=== PATIENT | female | born 1940 | race Caucasian/White ===

== ENCOUNTER 2016-11-06 16:56 | Emergency (ER) | payer MEDICARE, OTHER ==
[~2016-11-06] VITALS: Wt 57.5 kg
[2016-11-06 17:41] LABS: ADD SCAN DIFF NO
[2016-11-06] MEDS ORDERED: SITA100T8 PO (17:41)
[2016-11-06] MEDS ORDERED: MELO-110 PO (17:41)
[2016-11-06] MEDS ORDERED: PRAV40TA76 PO (17:42)
[2016-11-06] MEDS ORDERED: OMEP20CA16 PO (17:42)
[2016-11-06] MEDS ORDERED: GLIM1TAB2 PO (17:42)
[2016-11-06] MEDS ORDERED: METO25TA7 PO (17:43)
[2016-11-06] MEDS ORDERED: BACL10TA PO (17:43)
[2016-11-06 17:54] LABS: INR 0.83; PARTIAL THROMBOPLASTIN TIME 25.6 Sec (25.0-35.0); PROTIME 11.4 Sec (12.2-14.2); PT RATIO 0.9
[2016-11-06 17:55] LABS: ALBUMIN 4.5 g/dl (3.3-4.9); CHLORIDE 98 mmol/L (97-110); POTASSIUM 4.8 mmol/L (3.5-5.1); SODIUM 137 mmol/L (135-144)
[2016-11-06 17:57] LABS: CREATININE 0.64 mg/dl (0.44-1.00)
[2016-11-06 17:58] LABS: ALANINE AMINOTRANSFERASE 27 IU/L (13-69); ALBUMIN/GLOBULIN RATIO 1.25; ALKALINE PHOSPHATASE 97 IU/L (42-121); ANION GAP 18 (8-16); ASPARTATE AMINO TRANSFERASE 22 IU/L (15-46); BLOOD UREA NITROGEN 18 mg/dl (7-20); CALCIUM 9.5 mg/dl (8.4-10.2); CARBON DIOXIDE 26 mmol/L (21-31); GLUCOSE 287 mg/dl (70-220); TOTAL PROTEIN 8.1 g/dl (6.1-8.1)
[2016-11-06 18:30] LABS: TROPONIN-I < 0.012 ng/ml (0.00-0.12)
[2016-11-06 18:54] LABS: ADD UMIC YES; URINE BILIRUBIN (Dip) NEGATIVE (NEGATIVE); URINE BLOOD (Dip) NEGATIVE (NEGATIVE); URINE COLOR LT. YELLOW (YELLOW); URINE GLUCOSE (Dip) >=1000 % (NEGATIVE); URINE KETONES (Dip) NEGATIVE (NEGATIVE); URINE LEUKOCYTE ESTERASE (Dip) TRACE (NEGATIVE); URINE NITRITE (Dip) NEGATIVE (NEGATIVE); URINE TOTAL PROTEIN (Dip) NEGATIVE (NEGATIVE); URINE UROBILINOGEN (Dip) 0.2 E.U./dL (0.1-1.0)
--- NOTE | 2016-11-06 19:03 | RADRPT ---
PROCEDURE: CT Head without contrast. CLINICAL INDICATION: Pain, low platelets TECHNIQUE: Continuous axial CT images were obtained from the base of skull to the vertex. No cont rast was administered. The calculated radiation dose measures 720 mGy centimeters. The CTDI measures 45 mGy COMPARISON: None available FINDINGS: There is mild diffuse cerebral volume loss. The ventricles are symmetric and normal in configuratio n. There is no mass effect or midline shift. There is no abnormal intra-axial or extra-axial fluid collection. There is no evidence of intracranial hemorrhage. There is calcification in the left b dionisio ganglia. There are scattered areas of decreased attenuation in the supratentorial white matter, consistent wi th mild small vessel ischemic changes. There is mild to moderate atherosclerotic vascular calcificat ion. The bony calvarium is intact. The orbital soft tissue contents are unremarkable. Paranasal sinuses appear clear. IMPRESSION: 1. Mild age related cerebral volume loss. Mild small vessel ischemic changes. 2. Mild to moderate atherosclerotic vascular calcification. 3. No mass effect or acute intracranial bleed. 4. 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 RPTAT: DD .Raad Parra MD, Date Time Electronically viewed and signed by .Raad Parra MD, on 11/06/2016 19:03 .T/
[2016-11-06 19:45] LABS: BASOPHILS % 0.3 % (0.0-2.0); EOSINOPHILS # 0.2 10^3/ul (0.0-0.5); EOSINOPHILS % 1.8 % (0.0-7.0); HEMATOCRIT 43.1 % (37.0-47.0); HEMOGLOBIN 14.6 g/dl (12.0-16.0); LYMPHOCYTES # 3.5 10^3/ul (0.8-2.9); LYMPHOCYTES % 38.4 % (15.0-51.0); MEAN CORPUSCULAR HEMOGLOBIN 31.5 pg (29.0-33.0); MEAN CORPUSCULAR HGB CONC 33.9 g/dl (32.0-37.0); MEAN CORPUSCULAR VOLUME 92.9 fl (82.0-101.0); MEAN PLATELET VOLUME 9.9 fl (7.4-10.4); MONOCYTE # 0.8 10^3/ul (0.3-0.9); MONOCYTES % 8.3 % (0.0-11.0); NEUTROPHIL # 4.6 10^3/ul (1.6-7.5); NEUTROPHILS % 50.4 % (39.0-77.0); PLATELET COUNT 228 10^3/UL (140-415); RED BLOOD COUNT 4.64 10^6/ul (4.20-5.40); RED CELL DISTRIBUTION WIDTH 12.3 % (11.5-14.5); WHITE BLOOD COUNT 9.1 10^3/ul (4.8-10.8)
[2016-11-06 19:46] LABS: SQUAMOUS EPITHELIAL CELL,UR FEW; URINE RBCS NONE SEEN /HPF (0)
--- NOTE | 2016-11-06 19:57 | ERD ---
ER Documentation Chief Complaint Date/Time DATE: 11/06/16 TIME: 19:57 Chief Complaint sent by pmd for crit low platelet count 24, potassium 5.8, see attachd HPI Patient is a 76-year-old female with hypertension and diabetes who presents for a low platelet count. The patient was sent by Dr. Camara for a platelet count of 24. She also had a potassium of 5.8. She was seen by the doctor yesterday for right-sided leg pain that she has had since Friday. The laboratory studies returned today and she was sent to the ER. She has no new medicines. She has no fevers. Upon review of old medical records this the patient's first visit to the ER. ROS All systems reviewed and are negative except as per history of present illness. Medications Home Meds Reported Medications Baclofen* (Baclofen*) 10 Mg Tablet, 10 MG PO DAILY for 14 Days, #14 TAB 11/06/16 Metoprolol Succinate* (Toprol XL*) 25 Mg Tab.sr.24h, 25 MG PO DAILY, #30 TAB 11/06/16 Glimepiride* (Glimepiride*) 1 Mg Tablet, 1 MG PO WITH BREAKFAST, TAB 11/06/16 Omeprazole* (Omeprazole*) 20 Mg Capsule.dr, 20 MG PO DAILY, #30 CAP 11/06/16 Pravastatin Sodium* (Pravastatin Sodium*) 40 Mg Tablet, 40 MG PO HS, TAB 11/06/16 Sitagliptin* (Januvia*) 100 Mg Tablet, 100 MG PO DAILY, #30 TAB 11/06/16 Meloxicam* (Mobic*) 15 Mg Tablet, 15 MG PO QAM for 14 Days, #14 TAB 11/06/16 PMhx/Soc Positive for hypertension, diabetes, and high cholesterol Medical and Surgical Hx: Unable to obtain Hx Alcohol Use: No Hx Substance Use: No Hx Tobacco Use: No Smoking Status: Never smoker FmHx Family History: No diabetes Physical Exam Vitals Vital Signs Date Time Temp Pulse Resp B/P Pulse Ox O2 Delivery O2 Flow Rate FiO2 11/06/16 20:03 98.3 88 20 157/88 100 Room Air 11/06/16 18:44 98.4 71 20 147/59 100 Room Air 11/06/16 17:53 72 19 136/56 98 Room Air 11/06/16 16:58 98.0 78 20 164/72 98 Physical Exam Const: No acute distress Head: Atraumatic Eyes: Normal Conjunctiva ENT: Normal External Ears, Nose and Mouth. Neck: Full range of motion..~ No meningismus. Resp: Clear to auscultation bilaterally Cardio: Regular rate and rhythm, no murmurs Abd: Soft, non tender, non distended. Normal bowel sounds Skin: No petechiae or rashes Back: No midline or flank tenderness Ext: No cyanosis, or edema Neur: Awake and alert Psych: Normal Mood and Affect Result Diagram: 11/06/16 1715 11/06/16 171 Results 24 hrs Laboratory Tests Test 11/06/16 17:15 11/06/16 18:40 White Blood Count 9.110^3/ul Red Blood Count 4.6410^6/ul Hemoglobin 14.6g/dl Hematocrit 43.1% Mean Corpuscular Volume 92.9fl Mean Corpuscular Hemoglobin 31.5pg Mean Corpuscular Hemoglobin Concent 33.9g/dl Red Cell Distribution Width 12.3% Platelet Count 48752^3/UL Mean Platelet Volume 9.9fl Neutrophils % 50.4% Lymphocytes % 38.4% Monocytes % 8.3% Eosinophils % 1.8% Basophils % 0.3% Nucleated Red Blood Cells % 0.0/100WBC Neutrophils # 4.610^3/ul Lymphocytes # 3.510^3/ul Monocytes # 0.810^3/ul Eosinophils # 0.210^3/ul Basophils # 0.010^3/ul Nucleated Red Blood Cells # 0.010^3/ul Prothrombin Time 11.4Sec Prothrombin Time Ratio 0.9 INR International Normalized Ratio 0.83 Activated Partial Thromboplast Time 25.6Sec Sodium Level 137mmol/L Potassium Level 4.8mmol/L Chloride Level 98mmol/L Carbon Dioxide Level 26mmol/L Anion Gap 18 Blood Urea Nitrogen 18mg/dl Creatinine 0.64mg/dl Glucose Level 287mg/dl Calcium Level 9.5mg/dl Total Bilirubin 0.0mg/dl Direct Bilirubin 0.00mg/dl Indirect Bilirubin 0.0mg/dl Aspartate Amino Transf (AST/SGOT) 22IU/L Alanine Aminotransferase (ALT/SGPT) 27IU/L Alkaline Phosphatase 97IU/L Troponin I < 0.012ng/ml Total Protein 8.1g/dl Albumin 4.5g/dl Globulin 3.60g/dl Albumin/Globulin Ratio 1.25 Lipase 137U/L Urine Color LT. YELLOW Urine Clarity CLEAR Urine pH 5.5 Urine Specific [place] <=1.005 Urine Ketones NEGATIVE Urine Nitrite NEGATIVE Urine Bilirubin NEGATIVE Urine Urobilinogen 0.2 E.U./dL Urine Leukocyte Esterase TRACE Urine Microscopic RBC NONE SEEN/HPF Urine Microscopic WBC 0-2/HPF Urine Squamous Epithelial Cells FEW Urine Hemoglobin NEGATIVE Urine Glucose >=1000% Urine Total Protein NEGATIVE Procedures/MDM EKG read by me: Rate/Rhythm: Regular rate and rhythm at a rate of 73 Intervals: Normal Impression: No evidence of ischemia or arrhythmia Laboratory studies show normal potassium and normal platelets. Patient is a 76-year-old female presents for low platelets. I repeated laboratory studies here in the emergency department and her platelet count is normal. Potassium is normal as well. EKG shows no signs of ischemia or hyperkalemia. I believe outpatient management is appropriate. The patient will be discharged and can follow-up with the primary doctor. The patient can return for any worsening symptoms. Departure Diagnosis: Primary Impression: Encounter for laboratory test Condition: Fair Patient Instructions: Hyperglycemia (High Blood Sugar) Referrals: Your doctor Additional Instructions: Llame al doctor MAANA y pratibha stephen SOLO PARA DENTRO DE 1-2 ADAMSON.Dgale a la secretaria que nosotros le instruimos hacer esta solo.Avise o llame si tolentino condicin se empeora antes de la solo. Regresa aqui si peor o no mejor. CHRISTOPH ALANIS MD Nov 06, 2016 19:57
[2016-11-06 20:03] VITALS: BP 157/88; PULSE 88; RESP 20; TEMP 98.3
== END 2016-11-06 20:06 | disposition home or self-care (01) ==
LOC: E/R 16:56
DX: Z00.00 Encounter for general adult medical examination without abnormal findings (principal); I10 Essential (primary) hypertension; E11.9 Type 2 diabetes mellitus without complications; R51 Headache; Z79.84 Long term (current) use of oral hypoglycemic drugs
CPT/HCPCS: 36415; 70450; 80053; 81001; 81003; 83690; 84484; 85025; 85610; 85730; 93005

== ENCOUNTER 2017-09-12 13:37 | Emergency (ER) | END 2017-09-12 18:30 | disposition left against medical advice (07) ==